=== PATIENT | female | born 1995 | race Caucasian/White ===

== ENCOUNTER → 2016-06-12 | Outpatient (CLI) | payer OTHER ==
[~2016-06-12] MED LIST: PIPE1INJ11 IV; PRENTAB26 PO
[2016-06-12 13:13] LABS: HEMATOCRIT 30.7 % (37-47)
[2016-06-12 13:47] LABS: GTGD 50 Grams
[2016-06-12 13:59] LABS: URINE APPEARANCE CLEAR (CLEAR); URINE BILIRUBIN NEG (NEG); URINE COLOR YELLOW; URINE EPITHELIAL CELL AUTO >30 /lpf (0-5); URINE NITRITE NEG (NEG); UROBILINOGEN NEG (NEG)
[2016-06-12 14:09] LABS: MANUAL MICROSCOPIC REQUIRED? NO; REVIEW REQ? YES
== END | disposition home or self-care (01) ==
LOC: C.LAB1850 11:45
PROVIDERS: ATTEND Obstetrics & Gynecology
DX: Z34.03 Encounter for supervision of normal first pregnancy, third trimester (principal)

== ENCOUNTER → 2016-06-23 | Outpatient (CLI) | payer OTHER ==
[2016-06-23 14:10] LABS: URINE APPEARANCE CLEAR (CLEAR); URINE BILIRUBIN NEG (NEG); URINE COLOR YELLOW; URINE NITRITE NEG (NEG); URINE PH 7.5 (4.5-7.5); URINE SPECIFIC GRAVITY 1.017 (1.000-1.030); UROBILINOGEN NEG (NEG)
[2016-06-23 14:13] LABS: MANUAL MICROSCOPIC REQUIRED? NO; REVIEW REQ? NO
== END | disposition home or self-care (01) ==
LOC: C.LABSPEC 12:05
PROVIDERS: ATTEND Obstetrics & Gynecology
DX: Z34.03 Encounter for supervision of normal first pregnancy, third trimester (principal)

== ENCOUNTER → 2016-07-10 | Outpatient (CLI) | payer OTHER ==
[2016-07-10 12:39] LABS: URINE APPEARANCE CLOUDY (CLEAR); URINE BILIRUBIN NEG (NEG); URINE COLOR YELLOW; URINE EPITHELIAL CELL AUTO >30 /lpf (0-5); URINE NITRITE NEG (NEG); URINE PH 6.5 (4.5-7.5); URINE SPECIFIC GRAVITY 1.009 (1.000-1.030); UROBILINOGEN NEG (NEG)
[2016-07-10 12:43] LABS: MANUAL MICROSCOPIC REQUIRED? NO; REVIEW REQ? YES
== END | disposition home or self-care (01) ==
LOC: C.LABSPEC 11:16
PROVIDERS: ATTEND Obstetrics & Gynecology
DX: Z34.03 Encounter for supervision of normal first pregnancy, third trimester (principal)

== ENCOUNTER → 2016-07-28 | Outpatient (CLI) | payer OTHER | END | disposition home or self-care (01) | LOC: C.LABSPEC 13:41 | PROVIDERS: ATTEND Obstetrics & Gynecology | DX: O23.40 Unspecified infection of urinary tract in pregnancy, unspecified trimester (principal); Z3A.00 Weeks of gestation of pregnancy not specified ==

== ENCOUNTER → 2016-08-07 | Outpatient (CLI) | payer OTHER | END | disposition home or self-care (01) | LOC: C.LABSPEC 13:18 | PROVIDERS: ATTEND Obstetrics & Gynecology | DX: Z34.03 Encounter for supervision of normal first pregnancy, third trimester (principal) ==

== ENCOUNTER → 2016-08-21 | Outpatient (CLI) | payer OTHER ==
[2016-08-21 18:08] LABS: URINE APPEARANCE CLEAR (CLEAR); URINE BILIRUBIN NEG (NEG); URINE COLOR YELLOW; URINE NITRITE NEG (NEG); URINE PH 6.5 (4.5-7.5); URINE SPECIFIC GRAVITY 1.015 (1.000-1.030); UROBILINOGEN NEG (NEG)
[2016-08-21 18:09] LABS: MANUAL MICROSCOPIC REQUIRED? NO; REVIEW REQ? YES
[2016-08-21 18:18] LABS: URINE EPITHELIAL CELL AUTO 20-30 /lpf (0-5)
== END | disposition home or self-care (01) ==
LOC: C.LABSPEC 17:37
PROVIDERS: ATTEND Obstetrics & Gynecology
DX: O23.40 Unspecified infection of urinary tract in pregnancy, unspecified trimester (principal)

== ENCOUNTER 2016-08-28 09:27 | Inpatient (IN) | payer OTHER ==
[~2016-08-28] VITALS: Ht 162.6 cm; Wt 92.1 kg
[2016-08-28 10:43] VITALS: Ht 162.6 cm; Wt 92.1 kg
[2016-08-28 10:54] LABS: HEMATOCRIT 29.7 % (37-47); MEAN CELL VOLUME 85.1 fL (80-100); MEAN CORPUSCULAR HEMOGLOBIN 27.5 pg (25-34); MEAN CORPUSCULAR HGB CONC 32.3 g/dl (32-36); MEAN PLATELET VOLUME 10.6 fL (7.4-10.4); PLATELET COUNT 235 K/uL (130-400); RED BLOOD COUNT 3.49 M/uL (4.2-5.4); WHITE BLOOD COUNT 10.77 K/uL (4.8-10.8)
[2016-08-28 11:27] LABS: ALT/SGPT 12 U/L (12-78); BLOOD UREA NITROGEN 10 mg/dl (7-18); CALCIUM 8.4 mg/dl (8.5-10.1); CARBON DIOXIDE 21 mmol/L (21-32); CHLORIDE 108 mmol/L (98-107); GLUCOSE 65 mg/dl (70-99); POTASSIUM 3.8 mmol/L (3.5-5.1); SODIUM 138 mmol/L (136-145)
[2016-08-28 11:30] LABS: ALB/GLOB RATIO 0.5 (0.9-2); ALKALINE PHOSPHATASE 121 U/L (45-117); AST/SGOT 12 U/L (15-37)
--- NOTE | 2016-08-28 11:30 | Medical Student: [facility] ---
Med Student History & Physical Date of Service Aug 28, 2016. Chief Complaint Protein in urine test History of Present Illness Source: patient, partner, clinic records, hospital records 21 year old at 40 weeks and 0 days GA as calculated by LMP on 11/17/15 and confirmed by first trimester ultrasound who presents for evaluation following mildly elevated blood pressure and positive urine dipstick for protein , concerning for preeclampsia. She has no acute symptomatic complaints and denies any lightheadedness, headache, vision changes, excessive swelling, or right upper quadrant pain. She reports frequent movement, some minor bleeding following a pelvic exam but none since, no leakage of fluid, and infrequent and inconsistent contractions. Her has been complicated by anemia, and recurrent UTIs and kidney stones, and she had been on suppressive therapy with nitrofurantoin until her prescription ran out about a week ago. Labs: Blood type: B+, antibody screen negative HCT/HGB: 29.7%/9.6 g/dl Rubella: Immune VDRL/RPR: Nonreactive HBsAg: Negative HIV: Negative Chlamydia: Negative Gonorrhea: Negative Diabetes: Negative 2nd trimester screen: Negative GBS: Negative OB History G1: Medically induced G2: Current WAREHOUSE PACKAGING SUPERVISOR History Reports menarche at age 16. Last menstrual period was 11/17/15. Her periods are regular, occurring every 25 days with moderate to heavy bleeding for 3-4 days. She denies any history of STDs or abnormal pap smears. Her last pap was 01/2016 and was normal. Past Medical History Recurrent UTIs, two kidney stones for which she has a left ureteral stent placed. She is taking a vitamin and an iron supplement. She denies any medication use other than nitrofurantoin suppressive therapy, which she began in May. Her doctor recommended that if she run out of her prescription near delivery she should just wait until delivery to refill. She reports that she had a MRSA cellulitis at age 14. Past Surgical History Post teeth removal and ganglion cyst of wrist removal. Family History Patient reports a strong family history of diabetes and kidney disease and endorses frequent breast cancer in her family. However, no immediate family members with breast cancer. Social History Smoking Status: Former Smoker (1 pack a week for 3-4 years. Quit 2 months before becoming ) Alcohol Use: occasionally (has not consumed alcohol during ) Drug Use: none Marital Status: in relationship Housing status: lives with significant other Occupational Status: employed (bank analyst) Allergies Coded Allergies: Vancomycin (Verified Allergy, Severe, red man syndrome, 08/28/16) Sulfamethoxazole w/Trimethoprim (Verified Adverse Reaction, Severe, generalized pain;nausea, 08/28/16) Home Medications Multivit/Min/Iron/Fol Ac/Pren ( Vitamin), 1 TAB PO DAILY Review of Systems Eyes: No worsening of vision Respiratory: No shortness of breath Cardiovascular: No chest pain Abdomen: + pain (some cramping) Genitourinary - Female: No dysuria, No urinary frequency, No urinary urgency Physical Exam General Appearance: WD/WN, no apparent distress Respiratory/Chest: lungs clear, normal breath sounds Cardiovascular: regular rate, rhythm, no murmur Abdomen / GI: normal bowel sounds, non tender, soft, + pertinent finding ( gravid) Genitourinary - Female: + pertinent finding (cervix 1 cm dilated and soft) Extremities: normal inspection, no calf tenderness, no pedal edema Neurologic/Psych: alert, oriented x 3 Monitoring External Monitor: baseline 130, moderate variability, accelerations present, no decelerations Tocodynamometer: no significant contractions Laboratory Results 08/28/16 10:41 Test 08/28/16 10:41 Red Blood Count 3.49 M/uL (4.2-5.4) Mean Corpuscular Volume 85.1 fL (80-100) Mean Corpuscular Hemoglobin 27.5 pg (25-34) Mean Corpuscular Hemoglobin Concent 32.3 g/dl (32-36) RDW Standard Deviation 42.2 fL (36.4-46.3) RDW Coefficient of Variation 13.7 % (11.5-14.5) Mean Platelet Volume 10.6 fL (7.4-10.4) Assessment and Plan This is a 21 year old at 40 weeks and 0 days gestation who presents for preeclampsia workup. 24 hour urine is pending as well as electrolytes and protein analysis of urine. She is moderately anemic. Plan to induce tomorrow at the latest, depending on results of laboratory testing. Continue to monitor heart tones and contractions and continue routine care.
[2016-08-28] MEDS ORDERED: BUTORPHANOL TARTRATE 1 MG/ML VIAL ONE (19:42)
[2016-08-28] MEDS ORDERED: LACTATED RINGER'S 1000ML 1,000 ML IV PRN (19:42)
[2016-08-28] MEDS ORDERED: ONDANSETRON 8 MG/54 ML D5W IV PRN (19:45)
[2016-08-28] MEDS ORDERED: BUTORPHANOL TARTRATE 1 MG/ML VIAL IV PRN (19:45)
[2016-08-28] MEDS ORDERED: ONDANSETRON INJ 2 MG/ML 2 ML VIAL ONE (19:51)
[2016-08-28] MEDS: LACTATED RINGER'S 1000ML 1,000 ML IV SCH ×2 (23:00→23:56)
[2016-08-29] MEDS ORDERED: LACTATED RINGER'S 1000ML 500 ML IV PRN ×3 (00:43→16:24)
[2016-08-29] MEDS ORDERED: OXYTOCIN 30 UNITS/500ML NSS IV PRN ×2 (00:45→18:00)
[2016-08-29] MEDS ORDERED: NURSING VERBAL MED ORDER ONE (04:00)
[2016-08-29] MEDS ORDERED: ONDANSETRON INJ 2 MG/ML 2 ML VIAL ONE (04:02)
[2016-08-29] MEDS ORDERED: ONDANSETRON INJ 2 MG/ML 2 ML VIAL IV PRN ×3 (04:15→16:30)
[2016-08-29] MEDS: LACTATED RINGER'S 1000ML 1,000 ML IV SCH ×2 (08:20→11:37)
[2016-08-29] MEDS ORDERED: BUPIVACAINE 0.25% 30 ML VIAL ONE ×2 (08:32→15:31)
[2016-08-29] MEDS ORDERED: FENTANYL CITRATE INJ 50 MCG/1 ML 2 ML VIAL ONE ×3 (08:32→15:32)
[2016-08-29] MEDS ORDERED: EpHEDrine SULFATE INJ 50 MG/ML AMP ONE (08:32)
[2016-08-29] MEDS ORDERED: FENTANYL 2MCG/ML ROPIV 1.25MG/ML 100ML BAG EPI ONE (08:33)
[2016-08-29] MEDS ORDERED: NALOXONE HCL INJ 1 MG in SODIUM CHLORIDE 0.9% 1000ML 1,000 ML IV PRN ×5 (09:18→16:24)
[2016-08-29] MEDS ORDERED: EpHEDrine SULFATE INJ 50 MG/ML AMP IV PRN ×2 (09:30→16:30)
[2016-08-29] MEDS ORDERED: PROMETHAZINE HCL INJ 25 MG in SODIUM CHLORIDE 0.9% 50ML 50 ML IV PRN (09:30)
[2016-08-29] MEDS ORDERED: NALBUPHINE HCL INJ 10 MG/ML AMP IV PRN ×2 (09:30→16:30)
[2016-08-29] MEDS ORDERED: NALOXONE HCL INJ 0.4 MG/1 ML VIAL/CARP IV PRN ×2 (09:30→16:30)
[2016-08-29] MEDS ORDERED: METOCLOPRAMIDE HCL INJ 20 MG in SODIUM CHLORIDE 0.9% 50ML 50 ML IV PRN (09:30)
[2016-08-29] MEDS ORDERED: DiphenhydrAMINE HCL 50 MG/ML VIAL IV PRN ×2 (09:30→16:30)
[2016-08-29] MEDS: FENTANYL 2MCG/ML ROPIV 1.25MG/ML 100ML BAG EPI PRN ×3 (15:09→16:18)
[2016-08-29] MEDS ORDERED: FENTANYL 2MCG/ML ROPIV 1.25MG/ML 100ML BAG EPI PRN (16:30)
[2016-08-29] MEDS ORDERED: LACTATED RINGER'S 1000ML 1,000 ML IV SCH (17:58)
[2016-08-29] MEDS ORDERED: DIPHTHERIA/TETANUS/PERTUSSIS 0.5 ML SYR/VIAL IM. ONE (18:00)
[2016-08-29] MEDS ORDERED: SUPERCREAM 0.870 % 15GM JAR EXT PRN (18:00)
[2016-08-29] MEDS ORDERED: BENZOCAINE 20% AER SPR 82.5 GM CAN EXT PRN (18:00)
[2016-08-29] MEDS ORDERED: ACETAMINOPHEN 325 MG TAB PO PRN (18:00)
[2016-08-29] MEDS ORDERED: LANOLIN OINT EXT PRN ×2 (18:00)
[2016-08-29] MEDS ORDERED: ACETAMINOPHEN/CODEINE 300/30MG TAB PO PRN ×2 (18:00)
[2016-08-29] MEDS ORDERED: HYDROCORTISONE ACETATE 25 MG SUPP PR PRN (18:00)
--- NOTE | 2016-08-29 19:14 | DELIVERY SUMMARY ---
DATE OF OPERATION: 08/29/2016 VAGINAL DELIVERY NOTE PREOPERATIVE DIAGNOSES: 1. Suazo intrauterine at term. 2. Mild preeclampsia. 3. Induction of labor. POSTOPERATIVE DIAGNOSES: Same. PROCEDURE: Spontaneous vaginal delivery and repair of second degree laceration. SURGEON: Starr Rizvi MD IMMIGRATION PATROL INSPECTOR: None. ESTIMATED BLOOD LOSS: 350. COMPLICATIONS: None. DISPOSITION: Stable in labor and delivery. DESCRIPTION OF PROCEDURE: Mena is a 21-year-old -0-1-0, who was induced for mild preeclampsia at 40 weeks gestational age by placement of a Michaud bulb by my partner Dr. Arellano. Her induction was continued on the morning of August 29 with starting Pitocin. She was provided with an epidural for pain management. When I took over patient's care, artificial rupture of membrane was performed during exam and from that point forward she progressed quickly to delivery. I was called to the room when she was ready to push. Through her first push, she did very well and we prepped in gown for delivery. Through the next several pushes, she was coached and brought the head to . She then delivered the head of the infant in the TRUDY position followed by the shoulders with no difficulty and the remainder of the . The baby was put on mom's abdomen, where the cord was doubly clamped and cut by the father of the baby. Placenta delivered spontaneously and was noted to be intact with a 3-vessel cord. The was vigorous at delivery and was noted to make respiratory efforts and move all 4 extremities equally. Examination of the cervix, vagina and perineum revealed a second degree midline posterior perineal laceration, which was repaired using 2-0 Vicryl in the usual running locked fashion with a crown suture to rebuild the perineal body. After completion of delivery, the fundus was firm, lochia was minimal, and mother and infant were both in good condition having tolerated delivery well. I attest to the content of the Intraoperative Record and any orders documented therein. Any exceptio ns are noted below.
[2016-08-29] MEDS: IBUPROFEN 600 MG TAB PO PRN (19:25)
--- NOTE | 2016-08-29 19:28 | Anesthesia Procedure Note ---
Anesthesia Epidural Removal Nt Date & Time Aug 29, 2016 at 19:28 Vital Signs Pain Intensity: 5.0 Notes Mental Status: alert / awake / arousable, participated in evaluation Nausea / Vomiting: adequately controlled Pain: adequately controlled Airway Patency, RR, SpO2: stable & adequate BP & HR: stable & adequate Hydration State: stable & adequate Neuraxial Anesthesia: was administered Anesthetic Complications: no major complications apparent, pt satisfied with anesthetic care Epidural: removed without complications, with tip intact
[2016-08-29 20:45] VITALS: BP 127/68; PULSE 93; TEMP 37.1
[2016-08-29 23:00] VITALS: BP 145/88; PULSE 86; TEMP 36.7
[2016-08-30] VITALS (7 sets, daily range): BP systolic 133–157; BP diastolic 77–99; PULSE 62–77; TEMP 36.5–36.7; O2SAT 97–99
[2016-08-30] MEDS: IBUPROFEN 600 MG TAB PO PRN ×3 (05:09→18:45)
--- NOTE | 2016-08-30 06:31 | Progress Note ---
Subjective Aug 30, 2016. Subjective conversation w/ patient, physical exam, chart review Ambulation: ambulating normally Voiding: no voiding problems Passing Gas: Yes Diet Tolerance: Regular Diet Lochia: Moderate Feeding Type: Breast Feeding Review of Systems Constitutional: No chills, No fever Respiratory: No cough Cardiac: No chest pain Breast: No problem reported Abdomen: No nausea, No vomiting Objective Vital Signs Date Time Temp Pulse Resp B/P Pulse Ox O2 Delivery O2 Flow Rate FiO2 08/30/16 03:50 36.7 77 18 157/81 Room Air 08/29/16 23:00 36.7 86 18 145/88 Room Air 08/29/16 23:00 Room Air 08/29/16 20:45 37.1 93 18 127/68 Room Air 08/29/16 20:45 Room Air Physical Exam General Appearance: WELL-APPEARING, NO APPARENT DISTRESS Respiratory/Chest: no respiratory distress, no accessory muscle use Cardiovascular: no edema Abdomen: non tender, soft Fundus: Firm Extremities: no calf tenderness Laboratory Results Last 24 Hours Test 08/30/16 04:44 Assessment and Plan Problem List Medical Problems: (1) Pyelonephritis affecting in third trimester Status: Acute (2) Urinary tract infection affecting care of mother in third trimester, antepartum Status: Acute Post- Day#: 1 Continue Routine Care: PPD#1 , Mild preeclampsia. BP remains elevated this AM but was normal right after delivery; possibly r/t inadequate pain control. Labs pending. No sx PIH currently. Will observe BP after pain medication this AM, and if remains elevated, may need to consider antihypertensive.
[2016-08-30 07:03] LABS: HEMATOCRIT 25.5 % (37-47)
[2016-08-30 07:06] LABS: HEMATOCRIT 24.5 % (37-47); MEAN CELL VOLUME 84.5 fL (80-100); MEAN CORPUSCULAR HEMOGLOBIN 28.3 pg (25-34); MEAN PLATELET VOLUME 10.3 fL (7.4-10.4); PLATELET COUNT 170 K/uL (130-400)
[2016-08-30 07:16] LABS: MEAN CORPUSCULAR HGB CONC 33.5 g/dl (32-36)
[2016-08-30 07:23] LABS: INR 0.9 (0.9-1.1); PARTIAL THROMBOPLASTIN RATIO 1.1; PROTHROMBIN TIME (PATIENT) 9.6 SECONDS (9.0-12.0)
[2016-08-30 07:41] LABS: CREATININE 0.91 mg/dl (0.60-1.20); URIC ACID 5.4 mg/dl (2.6-7.2)
[2016-08-30 07:43] LABS: BASO % 0.2 %; BASO ABS # 0.02 K/uL (0-0.2); COMPLETE YES; EOS % 1.2 %; IG% 0.2 %; LYMPH % 15.7 %; MONO % 8.1 %; NEUT % 74.6 %; TEAR DROP CELLS 1+
[2016-08-30] MEDS: DOCUSATE SODIUM 100 MG CAP PO SCH ×3 (08:00→20:13)
[2016-08-30] MEDS ORDERED: NIFEdipine 30 MG CR TAB PO SCH (08:39)
[2016-08-30] MEDS: PRENATAL VITAMIN TAB PO SCH (08:41)
--- NOTE | 2016-08-31 07:55 | Progress Note ---
Subjective Aug 31, 2016. Subjective conversation w/ patient, physical exam Ambulation: ambulating normally Voiding: no voiding problems Passing Gas: Yes Diet Tolerance: Regular Diet Lochia: Moderate Feeding Type: Breast Feeding Pain: controlled Review of Systems Constitutional: No problem reported Respiratory: No problem reported Cardiac: No problem reported Breast: No problem reported Abdomen: No problem reported Female : No problem reported Objective Vital Signs Date Time Temp Pulse Resp B/P Pulse Ox O2 Delivery O2 Flow Rate FiO2 08/30/16 23:30 36.7 76 20 133/77 Room Air 08/30/16 23:30 Room Air 08/30/16 21:00 135/90 08/30/16 15:50 36.6 67 20 149/99 Room Air 08/30/16 15:50 Room Air 08/30/16 13:45 76 135/89 08/30/16 13:15 36.5 75 18 153/97 99 Room Air 08/30/16 08:25 36.7 62 20 150/94 97 Room Air 08/30/16 08:25 97 Room Air Physical Exam General Appearance: WELL-APPEARING, NO APPARENT DISTRESS Respiratory/Chest: no respiratory distress Cardiovascular: regular rate, rhythm Abdomen: non tender, soft Fundus: Firm Extremities: normal inspection Assessment and Plan Problem List Medical Problems: (1) Pyelonephritis affecting in third trimester Status: Acute (2) Urinary tract infection affecting care of mother in third trimester, antepartum Status: Acute Post- Day#: 2 Continue Routine Care: PPD#2 - doing well Preeclampsia without severe features - BPs mostly 130s/80s, but some elevated values 150s/90s. Recommend recheck BP 1 week in office. Discharge to home today.
--- NOTE | 2016-08-31 07:57 | Discharge Instructions ---
Discharge Instructions Date of Service Aug 31, 2016. Admission Reason for Admission: R/O Pih Discharge Discharge Diagnosis / Problem: s/p vaginal delivery Discharge Goals Goal(s): Routine recovery after delivery Activity Recommendations Activity Limitations: per Instructions/Follow-up section . Instructions / Follow-Up Instructions / Follow-Up ACTIVITY RECOMMENDATIONS: * Gradual return to full activity over the next 2-3 weeks. * No lifting - nothing heavier than baby over the next 2-3 weeks. * Do not engage in vigorous exercise, sexual activity or sports until cleared by your physician. * Do not drive or operate any motorized equipment until cleared by your physician. * You may shower/bathe daily. MEDICATIONS: For discomfort or pain, you may use Acetaminophen (Tylenol), Ibuprofen (Advil), or Naproxen (Aleve) following the package directions. For constipation you may use Colace following the package directions. BREAST CARE: If you are not breast feeding: * Wear a supportive bra 24 hours a day for one to two weeks. * Avoid stimulating your breasts and nipples as much as possible during the first few weeks after delivery. * When taking a shower, have the warm water hit your back, not breasts. * When your breasts feel full, apply ice packs. Usually three to four times a day helps ease the discomfort. * Take a mild pain medication (Tylenol / Motrin) when you are uncomfortable. If breast feeding: * Use breast milk to lubricate nipples. Lansinoh cream may be used for sore nipples. You do not need to remove cream prior to breast feeding. If using a different brand of cream, check the label for directions regarding removal of cream prior to nursing. * Wear a supportive bra. * If having problems with breasts or breast feeding, call a exchange consultant or your health care provider. EPISIOTOMY CARE: After delivery, if you have an episiotomy (stitches), the following steps will ease discomfort and aid healing. * For the first 24 hours after delivery, place ice packs next to your episiotomy to help reduce swelling. * After the first 24 hour-period, sitz baths, either portable or in the tub, are suggested. A shower with a shower arm sprayed over the episiotomy may be comforting. * Bhumi care should be done after each voiding and bowel movement. Squirt warm water from a plastic bottle over the perineum (region of the body between the anus and urinary opening) and pat dry. * Use Dermoplast to ease discomfort. Shake container. Umbarger directly over the episiotomy. Place a Tucks on a clean sanitary pad next to your episiotomy. SPECIAL CARE INSTRUCTIONS: When you are discharged from the hospital, it is important for you to follow the instructions listed below: * During the first week at home, you should be able to care for yourself and your baby. In addition, the usual light household activities are encouraged. * Limit your activities to the way you feel. Do not try to clean the house or move furniture. Be sensible. * If you actively engage in sports and have done so up until the time of your delivery, you may resume these activities as soon as you feel able. This may take up to one month or even longer. Use good judgment. * Continue to take your vitamins for at least six weeks after the of your baby. * Your diet need not be limited unless you were on a special diet before your delivery. Breast-feeding mothers need around 2500 calories per day and at least 64-80 ounces of fluid per day (8 to 10 glasses). * You should eat foods from the four major food groups. Crash diets or fad diets are to be avoided. Eating lean meats, fresh fruits and vegetables, low-fat dairy products, high fiber foods and a regular exercise program, will help you get back to your pre- weight without putting your health at risk. * Constipation is sometimes a problem after delivery. Take a mild laxative as needed. If breast feeding, Milk of Magnesia is acceptable to use. You may use a suppository or Fleets enema if no episiotomy. * A daily shower or tub bath is suggested. Be sure to thoroughly and gently dry the perineum. * A bloody vaginal discharge will usually continue until around four weeks post . A small amount of bleeding may continue for as long as six weeks. Vaginal discharge changes from the bright red bleeding after delivery to pink then brownish and finally yellowish-pink before becoming white and disappearing. * Bleeding may increase with activity. Your first period may come in 4-8 weeks. If you are breast feeding, your period may be delayed even longer. * Glide (sex) can begin whenever both you and your partner feel comfortable and do not have any form of genital infection. It is recommended that you wait at least six weeks for internal and external healing to occur. If you have questions, please talk to your health care practitioner. A condom should be used to prevent infection and . * Foreplay, gentle intercourse and lubrication is very important the first several times to prevent pain. A water-based lubricant such as K-Y jelly or Astroglide may be used. * If you have RH negative blood and your baby is RH positive, you will receive RHOGAM by injection prior to discharge. The nurse will give you a card to keep with you that has the date and place that you received RHOGAM after delivery. * During your care, you had a Rubella screen done to check for the presence of rubella antibodies in your blood. If your test was negative, you will receive a Rubella vaccine prior to discharge. This vaccine may cause a fever, soreness at the injection site and flu-like symptoms. If these symptoms persist, notify your health care practitioner. is not advised for one month after a Rubella vaccine. * Verbalizes understanding of car seat law as reviewed with patient nursing. * Car Seat hand-out given and reviewed with patient by nursing. * Shaken baby information reviewed with patient by nursing. Call you doctor if: * Heavy bleeding (saturating several pads an hour) or passing clots the size of your fist. * A fever >101 degrees F (38.3 degrees C) on two occasions four hours apart and /or chills. * Unusual pain in the pelvic or vaginal areas. * "Baby Blues" lasting longer than two weeks. If you have any questions or concerns, call your health care practitioner at . FOLLOW UP VISIT: * Please call the office at to schedule a 6 week examination. It is important you keep this appointment. It is important for you to make arrangements for either yearly or twice yearly check-ups thereafter. Current Hospital Diet Patient's current hospital diet: Regular OB Diet Discharge Diet Recommended Diet: Regular OB Diet Pending Studies Studies pending at discharge: no Medical Emergencies . Who to Call and When: Medical Emergencies: If at any time you feel your situation is an emergency, please call 911 immediately. . Non-Emergent Contact Non-Emergency issues call your: Primary Care Provider, Room Service Server . . "Provider Documentation" section prepared by Bernadette Boone. VTE Core Measure Inpt VTE Proph given/why not?: Treatment not indicated
[2016-08-31 08:00] VITALS: BP 134/89; PULSE 77; TEMP 36.8
[2016-08-31] MEDS: PRENATAL VITAMIN TAB PO SCH (08:16)
[2016-08-31] MEDS: DOCUSATE SODIUM 100 MG CAP PO SCH (08:16)
[2016-08-31] MEDS: IBUPROFEN 600 MG TAB PO PRN (08:17)
[2016-08-31 15:42] VITALS: BP_DIAS 89; PULSE 77; TEMP 36.8
== END 2016-08-31 15:35 | disposition home or self-care (01) | DRG 775 ==
LOC: C.OPB 09:27 → C.LD 09:27 → C.OPB 10:32 → C.OBG 08-29 20:53
PROVIDERS: ADMIT Obstetrics & Gynecology; ATTEND Obstetrics & Gynecology
PROC: 3E0P7GC Introduction of Other Therapeutic Substance into Female Reproductive, Via Natural or Artificial Opening (ICD-10-PCS; 2016-08-28)
PROC: 0KQM0ZZ Repair Perineum Muscle, Open Approach (ICD-10-PCS; principal; 2016-08-29)
PROC: 10E0XZZ Delivery of Products of Conception, External Approach (ICD-10-PCS; principal; 2016-08-29)
DX: O14.04 Mild to moderate pre-eclampsia, complicating childbirth (principal); O23.33 Infections of other parts of urinary tract in pregnancy, third trimester; O70.1 Second degree perineal laceration during delivery; N12 Tubulo-interstitial nephritis, not specified as acute or chronic; Z37.0 Single live birth; Z3A.40 40 weeks gestation of pregnancy

== ENCOUNTER → 2016-08-28 | Outpatient (CLI) | payer OTHER ==
[2016-08-28 08:50] LABS: PATIENT HEIGHT 162.6 cm
[2016-08-28 10:25] LABS: URINE TOTAL PROTEIN 106.8 mg/dl (0-11.9)
[2016-08-28 13:42] LABS: CREATININE 0.89 mg/dl (0.6-1.2); URINE TOTAL PROTEIN CALC 2445.7 mg/24 hr (0-149.1)
== END | disposition home or self-care (01) ==
LOC: C.LAB1850 08:26
PROVIDERS: ATTEND Obstetrics & Gynecology
DX: O48.0 Post-term pregnancy (principal)

== ENCOUNTER 2021-01-08 07:37 | Inpatient (IN) ==
[2021-01-08] MEDS ORDERED: OXYTOCIN 30 UNITS/500 ML BAG IV PRN ×2 (08:28)
[2021-01-08] MEDS: LACTATED RINGER'S 1,000 ML IV PRN ×2 (08:50→13:01)
--- NOTE | 2021-01-08 08:56 | History & Physical Report ---
Date of Service January 08, 2021 Assessment & Plan (1) 40 weeks gestation of : (2) Encounter for induction of labor: Plan: Plan pitocin induction, arom when indicated. epidural on demand. fetus category one. anticipate . Admission and Anticipated Discharge Date Admission Date: January 08, 2021 History of Present Illness Chief Complaint: induction Primary Care Provider: ROYA Em Patient is a 25yowf with iup at 40 2/7 weeks who presents to labor and delivery for postdates induction. Was seen in the office yesterday and cervix favorable. Notes +fm. no lof/vb. Occasional contraction. Patient did test po sitive for covid in 05/27. First complicated by mild pet but pressures normal this . labs--B+/ab-/ri/rprnr/hepb-/hiv-/16 week gtt nl/ failed 28 week gtt and passed 2 hr/qs neg/ gbs neg. Allergies Allergy/AdvReac Type Severity Reaction Status Date / Time vancomycin Allergy Severe red man Verified 01/08/21 07:46 syndrome acetaminophen [From Tylenol] Allergy Swelling Verified 01/08/21 07:46 of Lip/Tongue/Throat Bactrim AdvReac Severe generalized Verified 08/30/16 08:56 pain;nausea sulfamethoxazole AdvReac Severe generalized Verified 01/08/21 07:46 pain;nausea trimethoprim AdvReac Severe generalized Verified 01/08/21 07:46 pain;nausea Home Medications Medication Instructions Recorded Confirmed Type prenat.vits,betty,ddo-abfo-uybvy 1 tab PO DAILY 05/21/20 01/08/21 History ondansetron 4 mg disintegrating 4 mg PO Q6H PRN #20 tab 11/20/20 01/08/21 Rx tablet aspirin 81 mg tablet 81 mg PO DAILY 01/08/21 01/08/21 History Patient History Medical History History of kidney stones Pre-eclampsia Surgical History History of surgical removal of ganglion cyst [place] teeth removed Family History Mother Breast cancer Grandmother (Maternal) Breast lump in female Grandfather (Maternal) Melanoma Aunt Breast cancer Grandmother (Maternal) Kidney disease Social History Smoking Status: Never smoker Hx Alcohol Use: No Hx Substance Use: No Preferred Language: Latvian Communication Ability: Effective Visual Impairment: Limited Hearing Ability: Normal Beliefs That Will Affect Care: None marital status: Single marital status details: Juan (27) [phone] Current Living Situation: Significant Other Current Living Situation Comment: apartment, lives with son and significant other current occupational status: unemployed Other Information That Helps Us Care for You: No Feels Safe at Home: Yes Safety Concerns: Feels Safe At This Time Childhood Exposure to Second-Hand Smoke: Yes Dental Care, Regularly: Yes Physical Activity Frequency: 5-6 Times per Week Seatbelt Use: always Sunscreen Use: Yes Assistive Devices: Contacts OB History g1--2014, eab g2--08/22, 40 weeks, , 6#9, mild pet RESIDENT CARE SUPERVISOR History noncontributory Review of Systems All systems reviewed & are unremarkable except as noted in HPI & below Physical Exam Constitutional: WD/WN, vitals as above Gastrointestinal (Abdomen): soft, gravid, nt Psychiatric: A+Ox3, euthymic affect Genitourinary: cx--tight 3/50/-2/mid/mod toco--rare contraction efm--140s with mod variability, accels to 160s, no decels. Results & Data ([facility]) Vital Signs (Past 12 Hours) Vital Signs Temp Pulse Resp BP 01/08/21 08:20 83 124/78 01/08/21 07:59 36.8 C 18 Code Status & VTE Plan VTE Prophylaxis Plan VTE Prophylaxis will be ordered: No Coding Level of Care Code None Diagnoses 40 weeks gestation of Z3A.40 Encounter for induction of labor Z34.90
[2021-01-08 09:10] LABS: Hematocrit (blood only) 31.8 % (37-47); Hemoglobin 10.5 g/dL (12.0-16.0); Mean Corpuscular Hemoglobin 29.2 pg (25-34); Mean Corpuscular Volume 88.6 fL (80-100); Mean Platelet Volume 10.3 fL (7.4-10.4); Platelet Count 248 K/uL (130-400); RDW Coefficient of Variation 13.5 % (11.5-14.5); RDW Standard Deviation 43.3 fL (36.4-46.3); Red Blood Count 3.59 M/uL (4.2-5.4); White Blood Count 10.14 K/uL (4.8-10.8)
[2021-01-08] MEDS ORDERED: BUPIVACAINE 0.25% 30 ML VIAL ONE (12:29)
[2021-01-08] MEDS ORDERED: SODIUM CHLORIDE 0.9% INJ 10 ML VIAL ONE (12:29)
[2021-01-08] MEDS ORDERED: fentaNYL 2MCG/ML ROPIVACAINE 1.25MG/ML 100 ML BAG EPI ONE (12:29)
[2021-01-08] MEDS ORDERED: fentaNYL citrate 100 MCG/2 ML VIAL ONE (12:29)
[2021-01-08] MEDS ORDERED: ePHEDrine sulfate 50 MG/ML AMP ONE (12:29)
--- NOTE | 2021-01-08 13:02 | Anesthesiology Consultation ---
Date of Service January 08, 2021 Assessment & Plan Chart Review Chart Review: Acceptable Risk for Labor Epidural Consults Requested none History Height/Weight Height: 5 ft 5 in Weight: 101.151 kg Allergies Allergy/AdvReac Type Severity Reaction Status Date / Time vancomycin Allergy Severe red man Verified 01/08/21 07:46 syndrome acetaminophen [From Tylenol] Allergy Swelling Verified 01/08/21 07:46 of Lip/Tongue/Throat Bactrim AdvReac Severe generalized Verified 08/30/16 08:56 pain;nausea sulfamethoxazole AdvReac Severe generalized Verified 01/08/21 07:46 pain;nausea trimethoprim AdvReac Severe generalized Verified 01/08/21 07:46 pain;nausea Medications Home Medications Medication Instructions Recorded Confirmed Last Taken prenat.vits,betty,zey-wqrq-oruhp 1 tab PO DAILY 05/21/20 01/08/21 01/07/21 ondansetron 4 mg disintegrating 4 mg PO Q6H PRN #20 tab 11/20/20 01/08/21 Unknown tablet aspirin 81 mg tablet 81 mg PO DAILY 01/08/21 01/08/21 01/07/21 Active Medications Generic Name Dose Route Start Last Admin Trade Name Freq PRN Reason Stop Dose Admin Lactated Ringer's 1,000 mls @ 125 mls/hr 01/08/21 08:28 01/08/21 13:01 Lr IV 01/10/21 08:27 125 mls/hr .Q8H PRN Administration L&D Protocol Protocol Oxytocin 30 units in 500 mls @ 14 mls/hr 01/08/21 08:28 01/08/21 12:05 Pitocin IV 01/10/21 08:27 0.84 units/hr .Q24H PRN 14 mls/hr Labor Induction/Augmentation Titration Protocol 0.84 UNITS/HR Past Medical History Medical History History of kidney stones Pre-eclampsia Past Family History Family History Mother Breast cancer Grandmother (Maternal) Breast lump in female Grandfather (Maternal) Melanoma Aunt Breast cancer Grandmother (Maternal) Kidney disease Past Surgical History Surgical History History of surgical removal of ganglion cyst [place] teeth removed Social History Smoking Status: Never smoker Hx Alcohol Use: No Hx Substance Use: No Physical Exam Vital Signs Last Vital Signs Temp 36.7 C 01/08/21 11:26 Pulse 86 01/08/21 12:59 Resp 18 01/08/21 11:26 BP 109/55 L 01/08/21 12:59 Pulse Ox 100 01/08/21 12:58 Testing Laboratory Results 01/08/21 08:54
[2021-01-08] MEDS ORDERED: NALBUPHINE HCL INJ 10 MG/ML AMP IV PRN (13:03)
[2021-01-08] MEDS ORDERED: NALOXONE HCL 1 MG in SODIUM CHLORIDE 0.9% 1000ML 1,000 ML IV PRN (13:03)
[2021-01-08] MEDS ORDERED: NALOXONE HCL 0.4 MG/1 ML VIAL/CARP IV PRN (13:03)
[2021-01-08] MEDS ORDERED: ePHEDrine sulfate 50 MG/ML AMP IV PRN (13:03)
[2021-01-08] MEDS ORDERED: diphenhydrAMINE 50 MG/ML VIAL IV PRN (13:03)
--- NOTE | 2021-01-08 13:57 | Labor Progress Brief Note ---
Date of Service January 08, 2021 Subjective comfortable with epidural Assessment & Plan (1) Encounter for induction of labor: Plan: fetus reassuring, arom done. continue pitocin. anticipate . Admission and Anticipated Discharge Date Admission Date: January 08, 2021 Physical Exam Physical Exam: cx--unchanged arom--clear toco--q3min, pit at 14 efm--category one. 120s with mod variability, small accels , no decels Results & Data ([facility]) Vital Signs (Past 12 Hours) Vital Signs Temp Pulse Resp BP Pulse Ox 01/08/21 13:53 71 100 01/08/21 13:48 78 100 01/08/21 13:46 66 114/64 01/08/21 13:43 81 100 01/08/21 13:38 73 99 01/08/21 13:33 74 100 01/08/21 13:29 76 115/60 01/08/21 13:28 76 100 01/08/21 13:25 72 110/65 01/08/21 13:23 75 99 01/08/21 13:19 81 113/60 01/08/21 13:18 80 99 01/08/21 13:14 77 112/58 L 01/08/21 13:13 78 99 01/08/21 13:09 85 116/55 L 01/08/21 13:08 83 100 01/08/21 13:05 90 117/58 L 01/08/21 13:03 80 99 01/08/21 12:59 86 109/55 L 01/08/21 12:58 85 100 01/08/21 12:57 86 106/57 L 01/08/21 12:55 77 116/59 L 01/08/21 12:53 91 H 118/67 99 01/08/21 12:51 77 119/74 01/08/21 12:49 77 135/79 01/08/21 12:48 77 99 01/08/21 12:47 79 133/82 01/08/21 12:45 86 130/83 01/08/21 12:43 84 100 01/08/21 12:38 79 100 01/08/21 12:06 76 119/78 01/08/21 11:26 36.7 C 18 01/08/21 11:25 72 126/82 01/08/21 10:24 75 130/81 01/08/21 09:22 72 125/73 01/08/21 08:20 83 124/78 01/08/21 07:59 36.8 C 18 Coding Level of Care Code None Diagnoses Encounter for induction of labor Z34.90
--- NOTE | 2021-01-08 17:17 | Labor Progress Brief Note ---
Date of Service January 08, 2021 Subjective comfortable with epidural Assessment & Plan (1) Encounter for induction of labor: Plan: fetus reassuring. iupc placed as no cervical change and pit at 20. Fetus category one. Aiming for >200MVUS. Admission and Anticipated Discharge Date Admission Date: January 08, 2021 Physical Exam Physical Exam: cx--75/-2 iupc placed toco--q2-3 min, pit at 20 efm--category one. 120s with mod variability, small accels , no decels Constitutional: WD/WN, vitals as above Psychiatric: A+Ox3, euthymic affect Results & Data ([facility]) Vital Signs (Past 12 Hours) Vital Signs Temp Pulse Resp BP Pulse Ox 01/08/21 17:08 76 98 01/08/21 17:04 36.6 C 22 01/08/21 17:03 85 100 01/08/21 17:01 76 120/69 01/08/21 16:58 73 98 01/08/21 16:53 66 99 01/08/21 16:48 73 99 01/08/21 16:47 67 103/63 01/08/21 16:43 74 99 01/08/21 16:38 66 99 01/08/21 16:33 78 100 01/08/21 16:30 81 16 99/56 L 01/08/21 16:28 81 97 01/08/21 16:23 76 98 01/08/21 16:18 70 98 01/08/21 16:16 75 105/53 L 01/08/21 16:13 74 99 01/08/21 16:08 69 98 01/08/21 16:03 75 99 01/08/21 16:02 72 131/57 L 01/08/21 16:00 18 01/08/21 15:58 77 99 01/08/21 15:53 86 100 01/08/21 15:48 77 100 01/08/21 15:47 76 132/85 01/08/21 15:43 75 100 01/08/21 15:38 77 99 01/08/21 15:33 77 99 01/08/21 15:30 78 16 131/83 01/08/21 15:28 72 98 01/08/21 15:23 77 98 01/08/21 15:18 78 97 01/08/21 15:16 79 128/84 01/08/21 15:13 78 98 01/08/21 15:08 77 98 01/08/21 15:03 76 98 01/08/21 15:00 36.6 C 90 16 125/84 01/08/21 14:58 82 99 01/08/21 14:53 76 99 01/08/21 14:48 77 99 01/08/21 14:45 77 122/75 01/08/21 14:43 73 98 01/08/21 14:38 73 98 01/08/21 14:33 72 98 01/08/21 14:30 69 121/79 01/08/21 14:28 74 98 01/08/21 14:23 74 99 01/08/21 14:18 76 99 01/08/21 14:16 78 117/75 01/08/21 14:13 79 99 01/08/21 14:10 36.5 C 18 01/08/21 14:08 74 100 01/08/21 14:03 77 100 01/08/21 14:01 78 132/76 01/08/21 13:58 72 99 01/08/21 13:53 71 100 01/08/21 13:48 78 100 01/08/21 13:46 66 114/64 01/08/21 13:43 81 100 01/08/21 13:38 73 99 01/08/21 13:33 74 100 01/08/21 13:29 76 115/60 01/08/21 13:28 76 100 01/08/21 13:25 72 110/65 01/08/21 13:23 75 99 01/08/21 13:19 81 113/60 01/08/21 13:18 80 99 01/08/21 13:14 77 112/58 L 01/08/21 13:13 78 99 01/08/21 13:09 85 116/55 L 01/08/21 13:08 83 100 01/08/21 13:05 90 117/58 L 01/08/21 13:03 80 99 01/08/21 12:59 86 109/55 L 01/08/21 12:58 85 100 01/08/21 12:57 86 106/57 L 01/08/21 12:55 77 116/59 L 01/08/21 12:53 91 H 118/67 99 01/08/21 12:51 77 119/74 01/08/21 12:49 77 135/79 01/08/21 12:48 77 99 01/08/21 12:47 79 133/82 01/08/21 12:45 86 130/83 01/08/21 12:43 84 100 01/08/21 12:38 79 100 01/08/21 12:06 76 119/78 01/08/21 11:26 36.7 C 18 01/08/21 11:25 72 126/82 01/08/21 10:24 75 130/81 01/08/21 09:22 72 125/73 01/08/21 08:20 83 124/78 01/08/21 07:59 36.8 C 18 Coding Level of Care Code None Diagnoses Encounter for induction of labor Z34.90
[2021-01-08] MEDS: fentaNYL 2MCG/ML ROPIVACAINE 1.25MG/ML 100 ML BAG EPI PRN ×2 (17:58→19:34)
--- NOTE | 2021-01-08 19:54 | Labor Progress Brief Note ---
Date of Service January 08, 2021 Subjective feeling pressure and urge to push, nausea Assessment & Plan (1) Encounter for induction of labor: Plan: can labor down or start second stage depending on how patient feels. fetus overall reassuring. anticipate . Admission and Anticipated Discharge Date Admission Date: January 08, 2021 Physical Exam Physical Exam: cx--c/c/0 toco--q 2-4 efm--130s with mod variability, accels present, variables with contractions Results & Data ([facility]) Vital Signs (Past 12 Hours) Vital Signs Temp Pulse Resp BP Pulse Ox 01/08/21 19:48 88 98 01/08/21 19:46 94 H 115/56 L 01/08/21 19:43 83 97 01/08/21 19:41 85 93 01/08/21 19:38 82 98 01/08/21 19:33 85 98 01/08/21 19:31 83 122/75 01/08/21 19:28 82 98 01/08/21 19:23 101 H 98 01/08/21 19:18 86 98 01/08/21 19:16 80 127/81 01/08/21 19:13 82 98 01/08/21 19:08 79 97 01/08/21 19:03 80 97 01/08/21 19:01 74 126/82 01/08/21 19:00 18 01/08/21 18:58 79 98 01/08/21 18:53 83 98 01/08/21 18:48 77 99 01/08/21 18:45 75 124/81 01/08/21 18:43 87 98 01/08/21 18:38 79 98 01/08/21 18:33 77 97 01/08/21 18:30 76 18 124/72 01/08/21 18:28 76 98 01/08/21 18:23 77 98 01/08/21 18:18 77 97 01/08/21 18:15 75 127/74 01/08/21 18:13 78 97 01/08/21 18:08 79 99 01/08/21 18:03 72 99 01/08/21 18:00 83 16 134/77 01/08/21 17:58 82 97 01/08/21 17:53 79 98 01/08/21 17:48 76 98 01/08/21 17:46 77 126/78 01/08/21 17:43 78 98 01/08/21 17:38 93 H 98 01/08/21 17:33 74 99 01/08/21 17:31 69 106/63 01/08/21 17:30 18 01/08/21 17:28 71 99 01/08/21 17:23 68 98 01/08/21 17:18 70 98 01/08/21 17:16 72 105/61 01/08/21 17:13 71 98 01/08/21 17:08 76 98 01/08/21 17:04 36.6 C 22 01/08/21 17:03 85 100 01/08/21 17:01 76 120/69 01/08/21 17:00 20 01/08/21 16:58 73 98 01/08/21 16:53 66 99 01/08/21 16:48 73 99 01/08/21 16:47 67 103/63 01/08/21 16:43 74 99 01/08/21 16:38 66 99 01/08/21 16:33 78 100 01/08/21 16:30 81 16 99/56 L 01/08/21 16:28 81 97 01/08/21 16:23 76 98 01/08/21 16:18 70 98 01/08/21 16:16 75 105/53 L 01/08/21 16:13 74 99 01/08/21 16:08 69 98 01/08/21 16:03 75 99 01/08/21 16:02 72 131/57 L 01/08/21 16:00 18 01/08/21 15:58 77 99 01/08/21 15:53 86 100 01/08/21 15:48 77 100 01/08/21 15:47 76 132/85 01/08/21 15:43 75 100 01/08/21 15:38 77 99 01/08/21 15:33 77 99 01/08/21 15:30 78 16 131/83 01/08/21 15:28 72 98 01/08/21 15:23 77 98 01/08/21 15:18 78 97 01/08/21 15:16 79 128/84 01/08/21 15:13 78 98 01/08/21 15:08 77 98 01/08/21 15:03 76 98 0803/21 15:00 36.6 C 90 16 125/84 01/08/21 14:58 82 99 01/08/21 14:53 76 99 01/08/21 14:48 77 99 01/08/21 14:45 77 122/75 01/08/21 14:43 73 98 01/08/21 14:38 73 98 01/08/21 14:33 72 98 01/08/21 14:30 69 121/79 01/08/21 14:28 74 98 01/08/21 14:23 74 99 01/08/21 14:18 76 99 01/08/21 14:16 78 117/75 01/08/21 14:13 79 99 01/08/21 14:10 36.5 C 18 01/08/21 14:08 74 100 01/08/21 14:03 77 100 01/08/21 14:01 78 132/76 01/08/21 13:58 72 99 01/08/21 13:53 71 100 01/08/21 13:48 78 100 01/08/21 13:46 66 114/64 01/08/21 13:43 81 100 01/08/21 13:38 73 99 01/08/21 13:33 74 100 01/08/21 13:29 76 115/60 01/08/21 13:28 76 100 01/08/21 13:25 72 110/65 01/08/21 13:23 75 99 01/08/21 13:19 81 113/60 01/08/21 13:18 80 99 01/08/21 13:14 77 112/58 L 01/08/21 13:13 78 99 01/08/21 13:09 85 116/55 L 01/08/21 13:08 83 100 01/08/21 13:05 90 117/58 L 01/08/21 13:03 80 99 01/08/21 12:59 86 109/55 L 01/08/21 12:58 85 100 01/08/21 12:57 86 106/57 L 01/08/21 12:55 77 116/59 L 01/08/21 12:53 91 H 118/67 99 01/08/21 12:51 77 119/74 01/08/21 12:49 77 135/79 01/08/21 12:48 77 99 08/03/21 12:47 79 133/82 01/08/21 12:45 86 130/83 01/08/21 12:43 84 100 01/08/21 12:38 79 100 01/08/21 12:06 76 119/78 01/08/21 11:26 36.7 C 18 01/08/21 11:25 72 126/82 01/08/21 10:24 75 130/81 01/08/21 09:22 72 125/73 01/08/21 08:20 83 124/78 01/08/21 07:59 36.8 C 18 Coding Level of Care Code None Diagnoses Encounter for induction of labor Z34.90
[2021-01-08] MEDS ORDERED: oxyCODONE HCL IR 5 MG TAB (IMMEDIATE RELEASE) PO PRN (20:36)
--- NOTE | 2021-01-08 20:40 | Delivery Summary ---
Vaginal Delivery Summary Date of Service January 08, 2021 Pre-operative Diagnosis: at 40 2/7 induction of labor Post-operative Diagnosis: same Procedure: pitocin induction epidural arom iupc second degree laceration and reapir EBL: 350cc Anesthesia: epidural Procedure: The patient presented for postdates induction. Started with pitocin then epidural and arom. IUPC placed to monitor contractions. The patient then progressed to c/c/0. The patient pushed for 11 contractions to deliver a viable male in patrice position. The nose and mouth were bulb suctioned on the perineum. A tight nuchal cord identified and clamped and cut on the perineum. The rest of the infant was then delivered without difficulty. The baby was vigorous. The nose and mouth were again bulb suctioned and the was placed in the maternal abdomen for drying and attention. Cord blood and segment obtained. Placenta delivered spontaneous, intact with a three vessel cord. Cervix/sulci/rectum were intact. A second 8 degree perineal laceration was repaired in the normal standard fashion. Hemostasis obtained with dilute pitocin and fundal massage. Apgars were 8/9. Mother and baby doing well at the end of the delivery. Vaginal Delivery Summary and 2nd Degree [facility] [place] Vaginal Delivery Charge Vaginal Delivery Codes: 62100 global code for the antepartum, delivery, and post- Delivery Type Details: and 2nd Degree LAC
[2021-01-08] MEDS ORDERED: HYDROCORTISONE ACETATE 25 MG SUPP PR PRN (20:48)
[2021-01-08] MEDS ORDERED: bisacodyL 10 MG SUPP PR PRN (20:48)
[2021-01-08] MEDS ORDERED: SUPERCREAM 0.870% 15 GM JAR EXT PRN (20:48)
--- NOTE | 2021-01-08 21:52 | Anesthesia Procedure Note ---
Date of Service January 08, 2021 Anesthesia Post Epidural Note Vital Signs Vital Signs: Temp Pulse Resp BP Pulse Ox 36.6 C 100 H 16 114/66 99 01/08/21 17:04 01/08/21 21:45 01/08/21 21:30 01/08/21 21:45 01/08/21 21:33 Pain Intensity Abdomen: Pain Intensity: 6 Bilateral Perineal: Pain Intensity: 1 Notes Mental Status: alert / awake / arousable Nausea / Vomiting: adequately controlled Pain: adequately controlled Airway Patency, RR, SpO2: stable & adequate BP & HR: stable & adequate Hydration State: stable & adequate Neuraxial Anesthesia: was administered and sensory block is resolving Anesthetic Complications: no major complications apparent and Pt Satisfied with anesthetic care Epidural: Removed without complications and With tip intact
[2021-01-08] MEDS: IBUPROFEN 600 MG TAB PO PRN (22:04)
[2021-01-08] MEDS: BENZOCAINE 20% AER SPR 82.5 GM CAN EXT PRN (22:05)
[2021-01-08] MEDS: DOCUSATE SODIUM 100 MG CAP PO SCH (22:07)
[2021-01-09] MEDS: IBUPROFEN 600 MG TAB PO PRN ×6 (02:02→23:36)
[2021-01-09] MEDS: BENZOCAINE 20% AER SPR 82.5 GM CAN EXT PRN (04:46)
--- NOTE | 2021-01-09 07:12 | Obstetrical Progress Note ---
Date of Service January 09, 2021 Assessment & Plan (1) Vaginal delivery: Routine pp care. Subjective Ambulation: ambulating normally Voiding: no voiding problems Passing Gas:: Yes Diet Tolerance:: clear liquids Lochia:: Small Feeding Type:: breast feeding Doing well. Notes her bottom is a little sore. Physical Exam Constitutional WD/WN, vitals as above Respiratory normal respiratory effort, lungs clear to auscultation Cardiovascular RRR, no murmur, no edema Extremities: no calf tenderness and no edema Gastrointestinal (Abdomen) soft, nt, nd ff/nt at u Psychiatric A+Ox3, euthymic affect Results & Data ([facility]) Vital Signs (Past 12 Hours) Vital Signs Temp Pulse Pulse Resp BP BP Pulse Ox 01/09/21 03:38 36.7 C 75 16 98/63 L 99 01/08/21 23:05 37.3 C 91 H 16 109/70 98 01/08/21 22:31 36.8 C 16 01/08/21 22:25 84 120/77 01/08/21 22:15 82 115/63 01/08/21 22:01 81 112/58 L 01/08/21 21:45 100 H 114/66 01/08/21 21:33 80 99 01/08/21 21:31 84 116/66 01/08/21 21:30 16 01/08/21 21:28 80 97 01/08/21 21:23 86 97 01/08/21 21:18 81 95 01/08/21 21:15 70 126/73 01/08/21 21:13 85 98 01/08/21 21:08 92 H 97 01/08/21 21:03 80 96 01/08/21 21:00 87 114/66 01/08/21 20:58 84 97 01/08/21 20:53 86 98 01/08/21 20:48 93 H 114/61 97 01/08/21 20:43 94 H 97 01/08/21 20:38 101 H 97 01/08/21 20:33 94 H 97 01/08/21 20:30 101 H 127/54 L 01/08/21 20:28 106 H 97 01/08/21 20:23 89 100 01/08/21 20:18 85 98 01/08/21 20:16 102 H 138/61 01/08/21 20:13 101 H 98 01/08/21 20:08 103 H 99 01/08/21 20:03 96 H 99 01/08/21 20:01 101 H 137/75 01/08/21 20:00 28 H 01/08/21 19:58 121 H 97 01/08/21 19:55 98 H 93 01/08/21 19:53 88 99 01/08/21 19:48 88 98 01/08/21 19:46 94 H 115/56 L 01/08/21 19:43 83 97 01/08/21 19:41 85 93 01/08/21 19:38 82 98 01/08/21 19:33 85 98 01/08/21 19:31 83 122/75 01/08/21 19:30 16 01/08/21 19:28 82 98 01/08/21 19:23 101 H 98 01/08/21 19:18 86 98 01/08/21 19:16 80 127/81 01/08/21 19:14 36.7 C 01/08/21 19:13 82 98
[2021-01-09] MEDS: PRENATAL VITAMIN 1 TAB PO SCH (07:35)
[2021-01-09] MEDS: DOCUSATE SODIUM 100 MG CAP PO SCH ×2 (07:35→20:22)
[2021-01-09 08:32] LABS: Hematocrit (blood only) 31.8 % (37-47); Hemoglobin 10.3 g/dL (12.0-16.0)
[2021-01-09] MEDS ORDERED: bisacodyL 5 MG TABEC PO SCH (20:00)
[2021-01-10] MEDS ORDERED: CALCIUM CARBONATE 500 MG CHEWABLE TAB PO PRN (00:51)
[2021-01-10] MEDS ORDERED: CALCIUM CARBONATE 500 MG CHEWABLE TAB ONE (00:52)
[2021-01-10] MEDS: IBUPROFEN 600 MG TAB PO PRN ×2 (03:22→07:57)
[2021-01-10] MEDS: DOCUSATE SODIUM 100 MG CAP PO SCH (07:57)
[2021-01-10] MEDS: PRENATAL VITAMIN 1 TAB PO SCH (07:57)
--- NOTE | 2021-01-10 09:55 | Obstetrical Progress Note ---
Date of Service <Mikaela AbdonDO - Last Filed: 01/10/21 09:54> January 10, 2021 Assessment & Plan <Mikaela Coppola DO - Last Filed: 01/10/21 09:54> (1) Encounter for care and examination after delivery: 25 yo post op day2 from , doing well. -Continue routine post care. -vital signs reviewed and WNL (Tmax 36.7) -Blood Type B+, GBS-, Rubella immune -Encourage ambulation, monitor and control pain with Motrin, tylenol PRN, resume regular diet, monitor lochia -encourage breast feeding -hemoglobin 10.3 (8/4) -discussed d/c with patient Day #:: 2 <Elio Tan MD - Last Filed: 01/11/21 13:26> (1) Encounter for care and examination after delivery: Subjective <Mikaela AbdonDO - Last Filed: 01/10/21 09:54> Ambulation: ambulating normally Voiding: no voiding problems Passing Gas:: Yes Diet Tolerance:: regular diet Lochia:: Small Feeding Type:: breast feeding Current Pain Level(1-10): 5 (well controlled on medication) Review of Systems Denies fever, chills, sweats Denies shortness of breath, difficulty breathing, chest pain, palpitations, chest pressure. Denies breast pain. Denies dysuria. Denies headache or changes in vision. Physical Exam <Mikaela AbdonDO - Last Filed: 01/10/21 09:54> General: Alert, oriented. No acute distress. Cardiac: Regular rate and rhythm, no murmurs/rubs/gallops. Respiratory: Clear to auscultation bilaterally a/p, no wheezes/rales/rhonchi. No increased work of breathing. Symmetrical chest rise. No respiratory distress. Abdomen: Soft, nontender, nondistended. Bowel sounds present. Uterus: Uterine fundus firm, palpable 1 cm below umbilicus. Lower Extremities: No lower extremity edema or swelling. No deep calf pain. Nila's negative bilaterally.. Results & Data ([facility]) <Mikaela Coppola DO - Last Filed: 01/10/21 09:54> Vital Signs (Past 12 Hours) Vital Signs Temp Pulse Resp BP Pulse Ox 01/10/21 08:00 36.6 C 77 20 125/82 99 01/10/21 00:31 36.7 C 88 16 115/76 Medications Administered Current Inpatient Medications Benzocaine (Benzocaine 20% Aer Spr 82.5 Gm Can) 1 appln EXT PRN PRN PRN Reason: Perineal Discomfort Stop: 02/07/21 20:47 Last Admin: 01/09/21 04:46 Dose: 82.5 appln Documented by: Bisacodyl (Bisacodyl 10 Mg Supp) 10 mg [place] DAILY PRN PRN Reason: No BM on 2nd post- day Stop: 02/07/21 20:47 Calcium Carbonate (Calcium Carbonate 500 Mg Chewable Tab) 1,500 mg PO Q6H PRN PRN Reason: Indigestion Stop: 02/09/21 00:50 Last Admin: 01/10/21 00:53 Dose: 1,500 mg Documented by: Cocaine HCl (Supercream 0.870% 15 Gm Jar) 1 gm EXT BID PRN PRN Reason: Hemorrhoidal Inflammation Stop: 01/22/21 20:47 Docusate Sodium (Docusate Sodium 100 Mg Cap) 100 mg PO DAILY@ [facility] Stop: 02/07/21 20:59 Last Admin: 01/10/21 07:57 Dose: 100 mg Documented by: Hydrocortisone (Hydrocortisone Acetate 25 Mg Supp) 25 mg [place] BID PRN PRN Reason: Hemorrhoidal Inflammation Stop: 02/07/21 20:47 Oxytocin (Pitocin) 30 units in 500 mls @ 333.333 mls/hr IV .Q1H30M PRN; Protocol PRN Reason: Bleeding Control Stop: 02/07/21 08:27 Ibuprofen (Ibuprofen 600 Mg Tab) 600 mg PO Q4H PRN PRN Reason: Pain/TIMMONS/Cramping/Fever Stop: 02/07/21 20:34 Last Admin: 01/10/21 07:57 Dose: 600 mg Documented by: Oxycodone HCl (Oxycodone Hcl Ir 5 Mg Tab (Immediate Release)) 5 mg PO Q6 PRN PRN Reason: Pain Stop: 01/22/21 20:35 Prenat Multivit/Cold Meat Cook/Iron/Folic Ac ( Vitamin 1 Tab) 1 tab PO DAILY@08 [facility] Stop: 02/08/21 07:59 Last Admin: 01/10/21 07:57 Dose: 1 tab Documented by: <Elio Tan MD - Last Filed: 01/11/21 13:26> Co-Signing Physician Notes Patient seen and evaluated and agree with the above finding and plan. Stable for discharge Resident Activity Tracking <Mikaela Coppola DO - Last Filed: 01/10/21 09:54> Resident Involvement: Resident Care Provided Care Provided: OB Delivery
== END 2021-01-10 11:05 | disposition home or self-care (01) | DRG 807 ==
LOC: 4S1 07:37 → 4S2 23:04